=== PATIENT | male | born 1960 ===

== ENCOUNTER 2018-08-03 10:44 | Emergency (ER) | payer BC ==
[2018-08-03 12:28] VITALS: BP 113/79
--- NOTE | 2018-08-03 13:01 | UC ---
Skin Complaint HPI - HPI Summary HPI Summary: developed increased redness over the left arm . seen several days ago at [facility] [place] at that time given bactrim 1 tab daily, he has taken the medication daily with no significant improvent noted , having increasing pain and swelling - History of Current Complaint Chief Complaint: UCSkin Time Seen by Provider: 08/03/18 12:32 Stated Complaint: LEFT FOREARM SKIN COMPLAINT Onset/Duration: Gradual Onset, Lasting Weeks Skin Exposure Onset/Duration: Weeks Ago Timing: Constant Onset Severity: Severe Current Severity: Moderate Pain Intensity: 8 Location: Other - left arm Character: Swelling, Redness, Painful Aggravating Factor(s): Nothing Alleviating Factor(s): Nothing Associated Signs & Symptoms: Positive: Negative Related History: Insect Bite/Sting - Allergy/Home Medications Allergies/Adverse Reactions: Allergies Allergy/AdvReac Type Severity Reaction Status Date / Time No Known Allergies Allergy Verified 08/03/18 12:22 Home Medications: Home Medications Ibuprofen TAB* [Advil TAB*] 400 - 600 mg PO Q6H PRN 08/03/18 [History Confirmed 08/03/18] Review of Systems Constitutional: Negative Skin: Rash Eyes: Negative ENT: Negative Respiratory: Negative Cardiovascular: Negative Gastrointestinal: Negative Genitourinary: Negative Motor: Negative Neurovascular: Negative Musculoskeletal: Negative Neurological: Negative Psychological: Negative Is Patient Immunocompromised?: No All Other Systems Reviewed And Are Negative: Yes PMH/Surg Hx/FS Hx/Imm Hx Previously Healthy: Yes - Surgical History Surgical History: None - Family History Known Family History: Positive: None Negative: Diabetes - Social History Alcohol Use: Weekly Substance Use Type: None Smoking Status (MU): Light Every Day Tobacco Smoker Type: Cigarettes Amount Used/How Often: 1/4 PPD Length of Time of Smoking/Using Tobacco: Since Age 19 Household Exposure Type: Cigarettes Physical Exam Triage Information Reviewed: Yes Appearance: Well-Appearing, Pain Distress Vital Signs: Initial Vital Signs Temp 37.2 C 08/03/18 12:18 Pulse 92 08/03/18 12:18 Resp 16 08/03/18 12:18 BP 113/79 08/03/18 12:18 Pulse Ox 98 08/03/18 12:18 Vital Signs Reviewed: Yes Eye Exam: Normal Eyes: Positive: Conjunctiva Clear ENT Exam: Normal Dental Exam: Normal Neck exam: Normal Neck: Positive: Supple Respiratory Exam: Normal Respiratory: Positive: Lungs clear Cardiovascular Exam: Normal Abdomen Description: Positive: Soft Bowel Sounds: Positive: Present Musculoskeletal Exam: Other - pain , swelling erysipelas type rash with swelling of the entire left arm, lymphangitic spread Neurological Exam: Normal Neurological: Positive: Alert Psychological Exam: Normal Skin: Positive: Other - swelling redness, cellulitis of the left arm Course/Dx - Diagnoses Provider Diagnoses: cellulitis, erysipelas Discharge - Sign-Out/Discharge Documenting (check all that apply): Patient Departure All imaging exams completed and their final reports reviewed: Yes - Discharge Plan Condition: Fair Disposition: TRANS HIGHER L OF CARE FAC Patient Education Materials: Cellulitis (ED) Referrals: No Primary Care Phys,NOPCP [Primary Care Provider] - - Billing Disposition and Condition Condition: FAIR Disposition: Trans Higher Lvl of Care Fac
== END 2018-08-03 13:06 | disposition home health service (06) ==
LOC: UCCORT 10:44
DX: L03.114 Cellulitis of left upper limb (principal); A46 Erysipelas; F17.210 Nicotine dependence, cigarettes, uncomplicated
CPT/HCPCS: 99212; G0463

== ENCOUNTER 2018-08-03 14:50 | Observation (INO) | payer BC ==
[2018-08-03 15:51] LABS: ABS Basophils 0.1 10^3/ul (0-0.2); ABS Eosinophils 0.1 10^3/ul (0-0.6); ABS Lymphocytes 1.7 10^3/ul (1.0-4.8); ABS Monocytes 0.8 10^3/ul (0-0.8); ABS Neutrophils 9.6 10^3/ul (1.5-7.7); ABS Nucleated RBC 0 10^3/ul; Eosinophil % 0.6 % (0-6); Hematocrit 43 % (42-52); Hemoglobin 14.7 g/dl (14.0-18.0); Lymphocyte % 13.8 % (25-47); Mean Corpuscular HGB Conc 34 g/dl (31-36); Mean Corpuscular Hemoglobin 33 pg (27-31); Mean Corpuscular Volume 96 fL (80-94); Mean Platelet Volume 7.2 um3 (7.4-10.4); Nucleated Red Blood Cells % 0; Platelet Count 328 10^3/ul (150-450); Red Blood Count 4.52 10^6/ul (4.00-5.40); Red Cell Distribution Width 13 % (10.5-15); White Blood Count 12.2 10^3/ul (3.5-10.8)
[2018-08-03 16:21] LABS: EGFR Non-African American 90.4 (>60)
[2018-08-03] MEDS ORDERED: Vancomycin(*) 1,250 MG in NS 0.9% 250 ML* 250 ML IVPB ONE (17:58)
[2018-08-03] MEDS ORDERED: NS 0.9% 1000 ML* 2,000 ML IV ONE (18:11)
--- NOTE | 2018-08-03 18:35 | ED ---
Upper Extremity Pain - HPI Summary HPI Summary: Pt is a 58 year old male presenting to the ED with a chief complaint of L arm pain. The pt has been on abx for the past several days. He thinks he got bit by a bug a couple of weeks ago, it was itchy initially. The pt reports feeling feverish and having chills. The pt denies CP or SOB. - History of Current Complaint Chief Complaint: EDRashSkinAbscess Stated Complaint: LT FOREARM SWELLING/BUG BITE Time Seen by Provider: 08/03/18 17:55 Hx Obtained From: Patient Mechanism Of Injury: Unknown - potentially bug bite Onset/Duration: Started Days Ago Timing: Constant Severity Initially: Mild Severity Currently: Mild Pain Location: Arm - Left Aggravating Factor(s): Movement Alleviating Factor(s): Rest Associated Signs & Symptoms: Positive: Swelling, Redness. Negative: Chest Pain , SOB - Allergies/Home Medications Allergies/Adverse Reactions: Allergies Allergy/AdvReac Type Severity Reaction Status Date / Time No Known Allergies Allergy Verified 08/03/18 15:04 PMH/Surg Hx/FS Hx/Imm Hx Previously Healthy: Yes Endocrine/Hematology History: Denies: Hx Blood Disorders History: Denies: Hx Acute Renal Failure Infectious Disease History: No Infectious Disease History: Denies: Traveled Outside the [place] in Last 30 Days - Family History Known Family History: Negative: Hypertension, Diabetes - Social History Alcohol Use: Occasionally Substance Use Type: Reports: None Smoking Status (MU): Light Every Day Tobacco Smoker Type: Cigarettes Amount Used/How Often: 1/4 PPD Length of Time of Smoking/Using Tobacco: Since Age 19 Review of Systems Positive: Chills. Negative: Fever, Skin Diaphoresis Negative: Erythema Negative: Sore Throat Negative: Chest Pain Negative: Shortness Of Breath, Cough Negative: Abdominal Pain, Vomiting, Nausea Negative: dysuria, hematuria Negative: Myalgia, Edema Negative: Rash Neurological: Negative - dizziness All Other Systems Reviewed And Are Negative: Yes Physical Exam - Summary Physical Exam Summary: Constitutional: Well-developed, Well-nourished, Alert. (-) Distressed Skin: Warm, Dry HENT: Normocephalic; Atraumatic Eyes: Conjunctiva normal Neck: Musculoskeletal ROM normal neck. (-) JVD, (-) Stridor, (-) Tracheal deviation Cardio: Rhythm regular, rate normal, Heart sounds normal; Intact distal pulses; The pedal pulses are 2+ and symmetric. Radial pulses are 2+ and symmetric. (-) Murmur Pulmonary/Chest wall: Effort normal. (-) Respiratory distress, (-) Wheezes, (-) Rales Abd: Soft, (-) epigastric tenderness, (-) Distension, (-) Guarding, (-) Rebound Musculoskeletal: Lymphangetic streaking up L arm with induration approximately 6cm by 25cm. Lymph: (-) Cervical adenopathy Neuro: Alert, Oriented x3 Psych: Mood and affect Normal Triage Information Reviewed: Yes Vital Signs On Initial Exam: Initial Vitals Temp Pulse Resp BP Pulse Ox 99.1 F 91 12 129/100 98 08/03/18 15:01 08/03/18 15:01 08/03/18 15:01 08/03/18 15:01 08/03/18 15:01 Vital Signs Reviewed: Yes Diagnostics - Vital Signs Vital Signs Temp Pulse Resp BP Pulse Ox 08/03/18 15:01 99.1 F 91 12 129/100 98 - Laboratory Lab Results: Lab Results 08/03/18 08/03/18 08/03/18 Range/Units 15:41 15:42 15:42 WBC 12.2 H (3.5-10.8) 10^3/ul RBC 4.52 (4.00-5.40) 10^6/ul Hgb 14.7 (14.0-18.0) g/dl Hct 43 (42-52) % MCV 96 H (80-94) fL MCH 33 H (27-31) pg MCHC 34 (31-36) g/dl RDW 13 (10.5-15) % Plt Count 328 (150-450) 10^3/ul MPV 7.2 L (7.4-10.4) um3 Neut % (Auto) 78.6 (38-83) % Lymph % (Auto) 13.8 L (25-47) % [place] % (Auto) 6.3 (0-7) % Eos % (Auto) 0.6 (0-6) % Baso % (Auto) 0.7 (0-2) % Absolute Neuts (auto) 9.6 H (1.5-7.7) 10^3/ul Absolute Lymphs (auto) 1.7 (1.0-4.8) 10^3/ul Absolute Monos (auto) 0.8 (0-0.8) 10^3/ul Absolute Eos (auto) 0.1 (0-0.6) 10^3/ul Absolute Basos (auto) 0.1 (0-0.2) 10^3/ul Absolute Nucleated RBC 0 10^3/ul Nucleated RBC % 0 Sodium 135 (135-145) mmol/L Potassium 4.0 (3.5-5.0) mmol/L Chloride 105 (101-111) mmol/L Carbon Dioxide 22 (22-32) mmol/L Anion Gap 8 (2-11) mmol/L BUN 18 (6-24) mg/dL Creatinine 0.87 (0.67-1.17) mg/dL Est GFR ( Amer) 109.4 (>60) Est GFR (Non-Af Amer) 90.4 (>60) BUN/Creatinine Ratio 20.7 H (8-20) Glucose 145 H (70-100) mg/dL Lactic Acid 1.1 (0.5-2.0) mmol/L Calcium 9.1 (8.6-10.3) mg/dL Total Bilirubin 0.40 (0.2-1.0) mg/dL AST 14 (13-39) U/L ALT 18 (7-52) U/L Alkaline Phosphatase 98 (34-104) U/L C-Reactive Protein 100.96 H (<8.01) mg/L Total Protein 6.9 (6.4-8.9) g/dL Albumin 4.0 (3.2-5.2) g/dL Globulin 2.9 (2-4) g/dL Albumin/Globulin Ratio 1.4 (1-3) Result Diagrams: 08/03/18 15:42 08/03/18 15:42 Lab Statement: Any lab studies that have been ordered have been reviewed, and results considered in the medical decision making process. Course/Dx - Course Course Of Treatment: The pt is a 58 year old male with a large swollen and erythematous area on his L arm. It is causing him pain and has gotten worse with time, and abx have not helped. He reports feeling feverish and having chills. Spoke to Dr. Hogan about admission to the hospital. The dx will be cellulitis and lymphangitis that have not responded to abx. - Diagnoses Provider Diagnoses: Left arm cellulitis, Lymphangitis Discharge - Sign-Out/Discharge Documenting (check all that apply): Patient Departure - admission - Discharge Plan Condition: Stable Disposition: HOME Referrals: No Primary Care Phys,NOPCP [Primary Care Provider] - - Attestation Statements Document Initiated by Scribe: Yes Documenting Scribe: Krystle Wright Provider For Whom Scribe is Documenting (Include Credential): Anthony Escalante MD. Scribe Attestation: Krystle Bergman, scribed for Anthony Escalante MD. on 08/03/18 at 1842.
[2018-08-03] MEDS ORDERED: Morphine VIAL* 10 MG/ML 1 ML VIAL IV ONE (18:48)
[2018-08-03] MEDS ORDERED: Ondansetron INJ* 2 MG/ML VIAL IV ONE (18:48)
[2018-08-03] MEDS ORDERED: Morphine INJ* 2 MG/ML 1 ML SYRINGE (TWO MG - NEW SYRINGE VERSION) IV PRN (19:13)
[2018-08-03] MEDS ORDERED: Acetaminophen TAB* 325 MG PO PRN (19:13)
[2018-08-03] MEDS ORDERED: Ondansetron INJ* 2 MG/ML VIAL IV PRN (19:13)
[2018-08-03] MEDS ORDERED: Vancomycin(*) 1,000 MG in NS 0.9% 250 ML* 250 ML IVPB SCH (19:14)
[2018-08-03] MEDS ORDERED: Vancomycin per Pharmacy* NOTE FOLLOW UP SCH (20:00)
[2018-08-03] MEDS: oxyCODONE/Acetamin 5/325 MG* TAB PO PRN (20:59)
[2018-08-03] MEDS: NS 0.9% 1000 ML* 1,000 ML IV SCH (21:16)
[2018-08-03 22:11] LABS: INR 0.93 (0.77-1.02)
--- NOTE | 2018-08-03 22:11 | HP ---
CC: Dr. Hicks; Dr. Villagomez * HISTORY AND PHYSICAL: DATE OF ADMISSION: 08/03/18 PRIMARY CARE PROVIDER: None. ATTENDING PHYSICIAN WHILE IN THE HOSPITAL: Dr. Krystle Dupree * (report dictated by Adelfo Real NP). CHIEF COMPLAINT: Left forearm redness, swelling, pain. HISTORY OF PRESENT ILLNESS: Mr. Carpenter is a 58-year-old male patient. He has a history of smoking abuse only. He denies any history of diabetes. He denies having any history of heart attack, strokes. No history of emphysema or COPD. 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 He was repairing it and he felt something bite him in his arm. He started scratching it throughout several days afterwards, it was itchy, he said, and red. He then noticed that the redness was not getting any better, so he went to [facility]. He was started on antibiotic therapy in the form of Bactrim once a day. Despite this though, he continued to have worsening redness going down into his elbow up into his biceps. He was having pain with supination of the arm, but not pronation. He says that he is able to flex and extend the elbow. He has had no trouble moving his digits or his wrist. He says he has not had any trauma to this. He denies any IV drug use, but he was concerned because the redness just was not getting any better. He had been on 3 days, again, of antibiotic therapy, but just with no avail and even having chills. He went back to Urgent Care today. He was having worsening pain and the redness was not just getting any better and it was extending outside the lines that were marked, so he was evaluated here. There was concern for worsening cellulitis and we were asked to evaluate for admission. PAST MEDICAL HISTORY: Significant for tobacco abuse only. PAST SURGICAL HISTORY: Denies. MEDICATIONS: Home medications: 1. Bactrim DS 1 tablet daily. 2. Ibuprofen 400 to 600 mg every 6 hours as needed. ALLERGIES TO MEDICATIONS: Include no known drug allergies. FAMILY HISTORY: His mother had diabetes. Father had a history of cancer. SOCIAL HISTORY: He is a bnse-i-fupe-a-day smoker for about 40 years. He drinks alcohol occasionally. His surrogate decision maker is his . REVIEW OF SYSTEMS: There is no documented fever, but he did admit to having chills. He is denying having any significant weight change. There was no double vision. He denies having any ear discharge. There was no rhinorrhea. He denies having any sore throat. There is no thyroid enlargement. He denied having any chest pain. There was no orthopnea. No nocturnal dyspnea. There was no abdominal pain. No dysuria, no frequency. No seizure, no loss of consciousness. No pruritus and no skin ulceration. Review of 14 systems completed, all others negative. PHYSICAL EXAMINATION GENERAL: At this time, Mr. Carpenter is a 58-year-old male patient. He is sitting in the ED stretcher. He does not appear to be in any acute distress. He appears to be well nourished, well developed. VITAL SIGNS: Blood pressure initially was 129/100 with pulse of 91, respirations were 18, his O2 saturation was 98%, and temperature was 99.1. HEENT: Head: Atraumatic, normocephalic. Eyes: EOMs are intact. Sclerae anicteric and not pale. Throat: Oral mucosa appears to be moist. No oropharyngeal erythema. NECK: Supple. LUNGS: Clear to auscultation bilaterally. HEART: Sounds S1, S2. He had a regular rate and rhythm. No murmurs, rubs, or gallops. ABDOMEN: Soft, flat, and nontender. Bowel sounds were present. EXTREMITIES: Pulses were 2+ throughout. He is moving all 4 extremities with 5/ 5 strength. The left upper extremity, he has an area of induration and swelling with a central area of abrasion and scab to his forearm just below his elbow. There is no fluctuance noted. The induration and redness extends down into the elbow where there is swelling around the left elbow and does extend up into the forearm. He has no palpable adenopathy into the axilla area. He does have good flexion and extension, 5/5 strength. Again, on supination, he does have pain in the lateral aspect of his elbow and there is tenderness again palpating the lateral aspect of the elbow as well. NEUROLOGICAL: He is awake, alert, oriented x3. He had no gross focal deficits. SKIN: Intact exception he does have again area just at his left forearm medially, otherwise skin is intact. LABORATORY DATA: WBC of 12.2, RBC of 4.52, hemoglobin of 14.7, hematocrit of 43, and platelet count of 328. His sodium was 135, potassium was 4, chloride of 105, bicarb 22, BUN 18, creatinine of 0.7, glucose 145, lactate 1.1, calcium 9.1. Total bili 0.4, AST 14, ALT 18, alk phos 98. CRP of 100. Albumin of 4. Old medical records were reviewed. ASSESSMENT AND PLAN: Mr. Carpenter is a 58-year-old male patient coming into the ER today with complaints of again 2 weeks ago being bit by something, an insect , he is unsure, he was itching it for several days afterwards and then on presented to Urgent Care, he was started on Bactrim once a day. He took this for 3 days, but despite this, the redness and swelling was getting worse. He was back to Urgent Care today and he was referred to the ER, and we were asked to evaluate for admission. He will be admitted under inpatient status for : 1. Cellulitis. Concern for olecranon bursitis. I did touch base with Dr. Hicks. Fortunately, he does have good range of motion to that elbow. There is no pain with flexion and extension, so that is reassuring, but there is a fair amount of swelling there and he may have an abscess underneath that area of induration that I am unable to feel. We will get an MRI of the left upper extremity tonight to evaluate the bones and musculature. Ortho has been consulted. He will be n.p.o. after midnight just in case the I and D needed to be pursued. I will place the patient on vancomycin. In addition to this, he had blood cultures that were sent. He does appear to have mild sign of sepsis. His white count is 12,000 and his heart rate was 91, but he does not have severe sepsis or septic shock. He did receive a 2 L bolus here in the ED. Again, blood cultures were sent, lactate was normal, and will continue elevating the extremity and I ordered Percocet and morphine, and we will continue to follow him closely. 2. Tobacco abuse. I have offered nicotine patch, he refused, but I did offer smoking cessation counseling. 3. DVT prophylaxis. He will be placed on heparin subcu. 4. Code status. Full code. 5. Fluids, electrolytes, and nutrition. He can have a regular diet and he will be n.p.o. after midnight. TIME SPENT: On the admission was 60 minutes, greater than half time was spent face- to-face with the patient obtaining my history and physical, other half time was spent going over the plan of care with the patient and implementing the plan of care. I did discuss the plan of care with my attending, Dr. Dupree; she is in agreement. ADELFO REAL, SAND OPERATOR [id number]/CPS #: [id number] LINA
--- NOTE | 2018-08-03 22:17 | RAD ---
EXAM: MR Left Upper Extremity Without Intravenous Contrast, Forearm EXAM DATE/TIME: 08/03/2018 8:16 PM CLINICAL HISTORY: The patient age is 58 years old and is male; Signs and symptoms; Patient HX: Pt currently being treated for cellulitis, has been on abx for a few days but C/O worsening pain and redness. ; Additional info: Lue swelling redness pain Facility exam id and description: Mr uex l mri upper extremity left w/o TECHNIQUE: Multiplanar magnetic resonance images of the left forearm without intravenous contrast. COMPARISON: No relevant prior studies available. FINDINGS: Limitations: Evaluation or abscess is limited by the absence of intravenous contrast. Bones/joints: There is no acute marrow edema, acute fracture, or dislocation of the radius or ulna, as visualized. The olecranon process partially extends out of the field of view of this study on the STIR sequences. There is a subcentimeter STIR hyperintense lunate cyst. Evaluation of the wrist is limited on this study. Soft tissues: There is diffuse soft tissue swelling of the visualized left upper extremity, consistent with cellulitis in the appropriate clinical setting. There is subcutaneous increased T2 signal intensity which is somewhat more loculated within the medial aspect of the left forearm. This measures approximately 3.5 x 1.2 x 8.2 cm. This is suggestive of phlegmonous change or abscess. No visualized acute tear of the distal biceps and brachialis tendons. No significant acute edema is identified involving the musculature of the forearm. No well-defined soft tissue mass is visualized. IMPRESSION: 1. There is diffuse soft tissue swelling of the visualized left upper extremity, consistent with cellulitis in the appropriate clinical setting. 2. There is subcutaneous increased T2 signal intensity, which is somewhat more loculated , within the medial aspect of the left forearm. This measures approximately 3.5 x 1.2 x 8.2 cm. This is suggestive of phlegmonous change or abscess. Post contrast sequences are recommended to differentiate these etiologies. 3. There is no acute marrow edema, acute fracture, or dislocation of the radius or ulna, as visualized. 4. Additional findings described above.
[2018-08-03] MEDS: Heparin VIAL(*) 5000 UNITS/ML VIAL (FIVE THOUSAND) SUBCUT SCH (23:20)
[2018-08-04] MEDS: NS 0.9% 1000 ML* 1,000 ML IV SCH (05:43)
[2018-08-04] MEDS: Heparin VIAL(*) 5000 UNITS/ML VIAL (FIVE THOUSAND) SUBCUT SCH ×3 (05:47→21:11)
[2018-08-04] MEDS: Vancomycin(*) 1,000 MG in NS 0.9% 250 ML* 250 ML IVPB SCH ×2 (05:54→19:12)
[2018-08-04 07:56] LABS: ABS Basophils 0.1 10^3/ul (0-0.2); ABS Eosinophils 0.1 10^3/ul (0-0.6); ABS Monocytes 0.7 10^3/ul (0-0.8); ABS Neutrophils 6.4 10^3/ul (1.5-7.7); ABS Nucleated RBC 0 10^3/ul; Hematocrit 39 % (42-52); Hemoglobin 12.9 g/dl (14.0-18.0); Lymphocyte % 21.2 % (25-47); Mean Corpuscular HGB Conc 33 g/dl (31-36); Mean Corpuscular Hemoglobin 32 pg (27-31); Mean Corpuscular Volume 97 fL (80-94); Mean Platelet Volume 7.7 um3 (7.4-10.4); Nucleated Red Blood Cells % 0; Platelet Count 291 10^3/ul (150-450); Red Blood Count 3.99 10^6/ul (4.00-5.40); Red Cell Distribution Width 13 % (10.5-15); White Blood Count 9.2 10^3/ul (3.5-10.8)
[2018-08-04] MEDS: oxyCODONE/Acetamin 5/325 MG* TAB PO PRN ×3 (08:43→21:10)
[2018-08-04] MEDS ORDERED: Ketorolac INJ* 15 MG/ML 1 ML VIAL IV PUSH PRN (09:30)
--- NOTE | 2018-08-04 13:07 | PN ---
Subjective Date of Service: 08/04/18 Interval History: HOSPITALIST PROGRESS NOTE Patient seen and examined at bedside. Care reviewed and d/w Pamela Andrea RN. He feels better today. Left arm edema, erythema, and pain are less intense. 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 Family History: Unchanged from Admission Social History: Unchanged from Admission Past Medical History: Unchanged from Admission Objective Active Medications: Acetaminophen (Tylenol Tab*) 650 mg PO Q4H PRN PRN Reason: FEVER/PAIN Heparin Sodium (Porcine) (Heparin Vial(*)) 5,000 units SUBCUT Q8HR [facility] Last Admin: 08/04/18 05:47 Dose: 5,000 units Sodium Chloride (Ns 0.9% 1000 Ml*) 1,000 mls @ 125 mls/hr IV PER RATE [facility] Stop: 08/05/18 03:14 Last Admin: 08/04/18 05:43 Dose: 125 mls/hr Vancomycin HCl 1,000 mg/ (Sodium Chloride) 250 mls @ 166.667 mls/hr IVPB Q12H [facility] Last Admin: 08/04/18 05:54 Dose: 166.667 mls/hr Ketorolac Tromethamine (Toradol Inj*) 15 mg IV PUSH Q6H PRN PRN Reason: PAIN Stop: 08/09/18 09:29 Ondansetron HCl (Zofran Inj*) 4 mg IV Q6H PRN PRN Reason: NAUSEA Oxycodone/Acetaminophen (Percocet 5/325 Tab*) 1 tab PO Q4H PRN PRN Reason: PAIN Last Admin: 08/04/18 08:43 Dose: 1 tab Pharmacy Consult (Vancomycin Per Pharmacy*) 1 note FOLLOW UP .VANC PER PHARMACY [facility] Pharmacy Profile Note (Vancomycin Trough Check) 1 note FOLLOW UP 0630 ONE Stop: 08/05/18 06:31 Vital Signs - 8 hr 08/04/18 08/04/18 08/04/18 05:07 07:37 08:00 Temperature 97.7 F Pulse Rate 74 Respiratory 16 19 17 Rate Blood Pressure 105/66 (mmHg) O2 Sat by Pulse 98 Oximetry 08/04/18 08/04/18 08/04/18 08:43 10:43 12:18 Temperature 97.4 F Pulse Rate 66 Respiratory 17 16 18 Rate Blood Pressure 103/67 (mmHg) O2 Sat by Pulse 99 Oximetry Oxygen Devices in Use Now: None Appearance: Pleasant gentleman lying in bed in NAD. Eyes: No Scleral Icterus Ears/Nose/Mouth/Throat: Mucous Membranes Moist Neck: Trachea Midline Respiratory: Symmetrical Chest Expansion and Respiratory Effort, Clear to Auscultation Cardiovascular: RRR - Normal S1 and S2 Extremities: - - Left arm edema, mild erythema, receding from demarcation line, no fluctuation or drainage. Good pulses, capillary refill, normal ROM Neurological: Alert and Oriented x 3, NL Muscle Strength and Tone Result Diagrams: 08/04/18 07:08 08/04/18 07:08 Assess/Plan/Problems-Billing Assessment: Mr Carpenter is a 58yo M with PMH of tobacco abuse, who presented to ED with c/o left arm edema, erythema, pain, found to have cellulitis. - Patient Problems (1) Cellulitis Comment: - Continue Vancomycin. - Awaiting ID and Ortho input. - Add Toradol for pain control. (2) Tobacco abuse Comment: - Nicotine supplementation PRN. (3) DVT prophylaxis Comment: - SQ heparin. (4) Full code status Status and Disposition: Inpatient.
[2018-08-04] MEDS ORDERED: Mouth Piece, Nicotine* 1 EACH CARTRIDGE INH PRN (13:09)
[2018-08-04] MEDS ORDERED: Nicotine Inhaler* 10 MG AMP INH PRN (13:09)
--- NOTE | 2018-08-04 15:02 | CONS ---
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 He had a couple of days of itching and then eventual redness and swelling. He came to the hospital yesterday evening and was admitted for some IV antibiotics, observation, and MRI imaging. MEDICATIONS: Don is healthy otherwise, taking only some ibuprofen. He has been on oral Bactrim. ALLERGIES: No known drug allergies. SOCIAL HISTORY: He is a iamg-x-nryp-a-day smoker, some occasional alcohol. PHYSICAL EXAM: He is a healthy fit-appearing male, in no acute distress. Pleasant, appropriate mood and affect. The left shoulder has no pain, no swelling, no erythema. Full range of motion, elbow as well. There is no significant tenderness around the joint of the elbow and he is able to flex and extend fully. The wrist itself is completely nontender and non-swollen. Don claims that there was swelling down toward the wrist and above the elbow prior to admission yesterday. His current area of erythema and swelling is in the mid third of the forearm along the ulnar aspect where he has a small punctate scab, 2 to 3 mm in size, nondraining. There is no fluctuance, but there is edema around this, an area probably 10 to 12 cm in length with mild erythema. DIAGNOSTIC STUDIES: He did have an MRI last night, which shows some soft tissue swelling, possible early loculation, but no definitive fluid collection and elbow without effusion. IMPRESSION: The patient with soft tissue cellulitis at this point from most likely some kind of an insect bite. He is responding very well in just 14 hours of IV antibiotics. PLAN: I do not see a role for surgical incision at this point in time. There does not appear to be any joint involvement as well. I would recommend Infectious Disease's input, but it looks to me like another day or so of IV antibiotics and then a course of appropriate p.o.'s would be sufficient. [id number]/CPS #: [id number] MTDD
--- NOTE | 2018-08-04 20:36 | CONS ---
CONSULTATION REPORT: DATE OF CONSULT: 08/04/18 REQUESTING PROVIDER: Saman Real NP CONSULTING SERVICE: Infectious Disease. REASON FOR CONSULT: Left arm infection. IMPRESSION: Small left forearm subcutaneous abscess with cellulitis, no bursitis or septic arthritis, usually strep or staph. There is no foreign body seen on imaging. RECOMMENDATIONS: Continue vancomycin while he is here, as he is improved and then, we will plan on clindamycin 300 mg by mouth 3 times a day to complete a 2- week course. May need to extend it if the area of fluctuance persists. At this point, it seems too small to drain. HISTORY OF PRESENT ILLNESS: A 58-year-old man, who about a week ago developed left forearm pain and swelling while working on a truck. He thought he was bit , and he says slowly over the next couple of days had some increasing redness and pain. He was seen in [facility], started on Bactrim double strength a day, but had progression of the redness up through his elbow and towards his wrist. He came to the hospital yesterday. His CRP was 100. He was started on vancomycin. Blood cultures taken are negative, but MRI was obtained that showed soft tissue swelling in the left upper extremity, subcu loculated collection, medial left forearm, 3 x 1 x 8 cm phlegmon versus abscess. He noted that area on his left arm as where this kind of started and it has been getting smaller, particularly overnight. PAST MEDICAL HISTORY: Tobacco abuse. MEDICATIONS: 1. Tylenol. 2. Heparin subcutaneous injection. 3. Ketoralac. 4. Zofran as needed. 5. Vicodin. 6. Vancomycin 1 g every 12 hours. ALLERGIES: No known drug allergies. FAMILY HISTORY: No recurrent infections. SOCIAL HISTORY: Lives in [place]. 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 No travel. No sick contacts. REVIEW OF SYSTEMS: All negative except as noted above to the 14-point review of systems. PHYSICAL EXAM: Vital Signs: Temperature is 36, heart rate 74, respiratory rate 19, blood pressure 105/66, oxygen saturation is 98% on room air. In general, he is awake, not in distress. Neurologic: He is oriented x3, follows all commands. Sensation intact in both upper extremities to light touch. HEENT : There is no conjunctival hemorrhage. Oropharynx without lesions. Neck is supple without mass. Heart has regular rate and rhythm without murmurs, rubs, or gallops. Lungs are clear to auscultation bilaterally. Abdomen is soft, nontender, and nondistended. There are bowel sounds. Skin: There is no splinter hemorrhage. In the left arm, there is mild dependent edema from the proximal arm around the elbow down to the forearm with associated erythema, no tenderness, and then up on to the dorsal arm, there is a small area of induration, slight fluctuance, and erythema. A little bit of tenderness, no crepitus. Musculoskeletal: Left elbow range of motion is normal. There is no elbow tenderness and no bursa effusion. LABORATORY DATA: Creatinine 0.7. CRP 112. White blood cell count 9, hemoglobin 12, platelets 291. Please see impressions and recommendations as outlined above, which I have discussed with Dr. Cabrera. Thanks for asking me to see Mr. Carpenter in consultation. [id number] #: [id number] MTDD
[2018-08-05] MEDS: oxyCODONE/Acetamin 5/325 MG* TAB PO PRN (06:12)
[2018-08-05] MEDS: Heparin VIAL(*) 5000 UNITS/ML VIAL (FIVE THOUSAND) SUBCUT SCH (06:13)
[2018-08-05] MEDS ORDERED: Vancomycin Trough Check NOTE FOLLOW UP ONE (06:30)
[2018-08-05 07:55] VITALS: BP 114/83
[2018-08-05] MEDS: Vancomycin(*) 1,000 MG in NS 0.9% 250 ML* 250 ML IVPB SCH (08:32)
--- NOTE | 2018-08-05 09:14 | PN ---
Progress Note - Progress Note Date of Service: 08/05/18 SOAP: Subjective: CC: left arm infection HPI: 58 year old man with left forearm swelling and redness, small abscess on MRI. Pain swelling and redness much improved. No fever, rash, or diarrhea. Objective: Vital Signs Temp 36.8 C 08/05/18 07:16 Pulse 69 08/05/18 07:16 Resp 17 08/05/18 08:20 BP 114/83 08/05/18 07:16 Pulse Ox 98 08/05/18 07:16 Intake & Output 08/04/18 08/05/18 08/05/18 18:59 06:59 18:59 Intake Total 480 100 Output Total 300 175 Balance 180 -75 Intake: Oral 480 100 Output: Urine 300 175 Other: # Bowel Movements 0 # Voids 3 Gen:awake, no distress HEENT: no thrush Heart:RRR no murmur Lungs:CTA BL Abd:+BS NTND soft Skin: no rash Laboratory Results - last 24 hr 08/05/18 07:08 Vancomycin Trough 6.8 Assessment: 1. left arm cellulitis and subcutaneous abscess, improving Plan: 1. doxycycline 100 mg po bid for 14 days (instead of clinda), fu with me 1-2 weeks; discussed with Dr Cabrera
[2018-08-05] MEDS ORDERED: Vancomycin(*) 1,000 MG in NS 0.9% 250 ML* 250 ML IVPB SCH (16:00)
--- NOTE | 2018-08-06 14:20 | DS ---
CC: Dr. Aj Villagomez; Dr. Jose Morrell, [facility] DISCHARGE SUMMARY: DATE OF ADMISSION: 08/03/18 DATE OF DISCHARGE: 08/05/18 PRIMARY CARE PROVIDER: The patient has no primary care provider, but this will be arranged. INFECTIOUS DISEASE SPECIALIST: Dr. Aj Villagomez. DISCHARGE DIAGNOSIS: Left arm cellulitis. SECONDARY DIAGNOSIS: Tobacco abuse. MEDICATION LIST: 1. Ibuprofen 400 to 600 mg p.o. q.6 hours p.r.n. pain. 2. Doxycycline 100 mg p.o. b.i.d. for 2 more weeks. 3. Acetaminophen 650 mg p.o. q.6 hours p.r.n. pain or fever. HOSPITAL COURSE: Mr. Carpenter is a 58-year-old male with a past medical history as stated above that pr esented to the emergency room on 08/03/18 with complaints of left forearm redness, swelling, and pain . For more details about his presentation, I refer you to his history and physical. The patient had an upper extremity MRI that showed diffuse soft tissue swelling of the visualized lef t upper extremity consistent with cellulitis and a 3.5 x 1.2 x 8.2 cm lesion that suggests phlegmonou s change. No acute marrow edema. No acute fracture or dislocation of the radius or ulna. The patient was admitted under impression of left forearm cellulitis. He was seen in consultation by Infectious Disease (Dr. Villagomez) and his impression was that the patient had a probable small left forearm subcutaneous abscess with cellulitis, no signs of bursitis or septic arthritis, likely strept ococcal or staphylococcal infection, and no signs of foreign body. His recommendation was to continu e vancomycin while in the hospital and initially, he had recommended discharging the patient on clind amycin, but later on he changed his recommendation to continue doxycycline to complete 2 weeks of david atment. The patient responded well to treatment with significant improvement of the pain, edema, and erythema. He was also seen in consultation by Orthopedics (Dr. Hicks) and he felt that the patient's clinical picture was most likely just cellulitis and he did not see a role for surgical incision. The patient remained afebrile with stable vital signs and he was felt to be stable for discharge. He does not have a primary care provider at this time, so the plan is for him to follow up at the [facility] until a primary care provider appointment is arranged. He will also follow up gayla Villagomez as outpatient. PHYSICAL EXAMINATION: Vital Signs: Temperature 98.2, heart rate is 69, respiratory rate is 14, oxyg en saturation is 98% on room air, blood pressure is 114/83. General: The patient is a pleasant midd le-aged gentleman, sitting up in bed, in no acute distress. CVS: Normal S1, S2. Regular rate and r hythm. Chest: Breath sounds bilaterally with no added sounds. Extremities: The patient has mild le ft forearm edema and erythema, improved when compared to admission. Neuro: He is alert and oriented x3. Able to move all 4 extremities. DIET: Regular diet. ACTIVITIES: As tolerated. DISPOSITION: To home. STATUS WHILE IN THE HOSPITAL: Observation. The patient received tobacco cessation education, but he states that he is not ready to quit at this time. He should continue to receive education and encouragement for tobacco cessation as outpatient. Please keep in mind this is a summarized version of this patient's hospital stay. If you need more in formation, please feel free to call me at [phone] or please obtain the full medical records. TIME SPENT: Approximately 45 minutes was spent to complete this discharge. [id number]/CPS #: [id number]
[2018-08-06] MEDS ORDERED: Vancomycin Trough Check NOTE FOLLOW UP ONE (15:30)
== END 2018-08-05 11:55 | disposition home or self-care (01) ==
LOC: ED 14:50 → INTOOBSV 19:04 → MED 19:04
PROVIDERS: ADMIT Pediatrics; ATTEND Internal Medicine
DX: L03.114 Cellulitis of left upper limb (principal); F17.210 Nicotine dependence, cigarettes, uncomplicated; Z79.899 Other long term (current) drug therapy; M79.602 Pain in left arm
CPT/HCPCS: 36415; 80048; 80053; 80202; 83605; 85025; 85610; 85730; 86140; 87040; 96365; 96366; 96372; 96375; 96376; 99284; A9270-GY; G0378; J1644; J1885; J2270; J2405; J3370